=== PATIENT | female | born 1965 | race Caucasian/White ===

== ENCOUNTER 2020-04-05 08:35 | Emergency (ER) | payer SELFPAY ==
[~2020-04-05] VITALS: Ht 172.7 cm; Wt 62.2 kg
[~2020-04-05 08:35] MED LIST: ALPR2TAB2 PO; ASCO100019 PO; CARI350T14 PO; CHOL100014 PO; DIVA500T2 PO; HYDR-2155 PO; HYDR1TAB10 PO; MAG DELAY64 MG PO; OMEP20CA5 PO; OMEP40CA45 PO; ONDA2VIA3 IV; ONDA4TAB10 PO; OXCA600T9 PO; OXYC5TAB88 PO; PROM25SU32 RC; PROM25TA10 PO; SULF1TAB24 PO; TRAM50TA PO; UBID50CA PO; [UNRECOGNIZED DRUG - CODE] PO
[2020-04-05] MEDS ORDERED: ONDANSETRON ODT 4 MG TAB.RAPDIS PO ONE (09:15)
[2020-04-05] MEDS ORDERED: METOCLOPRAMIDE HCL 10 MG/2 ML VIAL. IM ONE (09:30)
[2020-04-05 09:46] LABS: CALCIUM 9.3 mg/dL (8.5-10.1); CREATININE 0.8 mg/dL (0.6-1.0); GFR 74.5; POTASSIUM 4.2 mmol/L (3.5-5.1)
[2020-04-05 09:47] LABS: BASO % 1 % (0-3); EOS # 0.1 x10^3/uL (0.0-0.7); EOS % 1 % (0-3); HEMATOCRIT 49.1 % (36.0-47.0); HEMOGLOBIN 16.5 g/dL (12.0-15.5); LYMPH # 1.8 x10^3/uL (1.0-4.8); LYMPH % 27 % (24-48); MEAN CORPUSCULAR HEMOGLOBIN 31 pg (25-35); MEAN CORPUSCULAR HGB CONC 34 g/dL (31-37); MEAN CORPUSCULAR VOLUME 93 fL (79-100); MONO # 0.4 x10^3/uL (0.0-1.1); MONO % 6 % (0-9); NEUT # 4.3 x10^3uL (1.8-7.7); NEUT % 65 % (31-73); PLATELET COUNT 332 x10^3/uL (140-400); RED BLOOD COUNT 5.31 x10^6/uL (3.50-5.40); RED CELL DISTRIBUTION WIDTH 12.9 % (11.5-14.5); WHITE BLOOD COUNT 6.6 x10^3/uL (4.0-11.0)
[2020-04-05 10:00] LABS: ALBUMIN 3.9 g/dL (3.4-5.0); TOTAL BILIRUBIN 0.4 mg/dL (0.2-1.0); TOTAL PROTEIN 7.9 g/dL (6.4-8.2)
--- NOTE | 2020-04-05 10:00 | RAD ---
EXAM: XR CHEST 1V 04/05/2020 8:53 AM CLINICAL INDICATION: Shortness of breath COMPARISON: Chest radiograph 05/27/2016 TECHNIQUE: AP upright view the chest FINDINGS: The heart and mediastinum are normal. Lungs are well-expanded. No focal opacity, pleural e ffusion, or pneumothorax. No acute osseous abnormality. IMPRESSION: No acute cardiopulmonary abnormality. Electronically signed by: Holli Duncan MD (04/05/2020 9:57 AM) [id number]
[2020-04-05 10:15] VITALS: BP 148/80
--- NOTE | 2020-04-05 10:47 | PHYS DOC ---
Past History Past Medical History: Anxiety, Bipolar, COPD, GERD, Hypertension, Other Additional Past Medical Histor: ADHD, Cyclic vomiting Past Surgical History: Tubal ligation Smoking: Cigarettes Alcohol Use: None Drug Use: None General Adult EDM: Chief Complaint: MULTIPLE COMPLAINTS HPI: HPI: 55 yo F GERD, tobacco use, COPD, bipolar disorder and cyclic vomiting presents to the ed with c/o "I think I have covid, my left long I feel a bump in it," for the past 7 days with associated nausea and nonbloody nonbilious vomiting. No relief with Zofran, Protonix and promethazine the patient took prior to arrival. Patient states her tested +2 weeks ago for Covid and she was tested on [facility] the [facility], unsure of the results. Has no PMD. Reports her heart function is 10% and was tested 2 years ago for this in [place], has no AICD and has never been admitted for fluid overload/chf. Also c/o "my heart hurts," described as bilateral upper sharp nonradiating chest pain, with left arm pain for the past 2 weeks. Initially reported she did not know her family history then later stated her father had a heart attack at 55. Denies any history of cocaine or methamphetamine abuse. No history of cardiac cath or stress test. Review of Systems: Review of Systems: Constitutional: Denies fever or chills Eyes: Denies change in visual acuity HENT: Denies nasal congestion or sore throat Respiratory: Denies cough or hemoptysis Cardiovascular: Denies syncope or edema GI: Denies abdominal pain, bloody stools or diarrhea : Denies dysuria Musculoskeletal: Denies back pain or joint pain/swelling Integument: Denies rash Neurologic: Denies headache, neck stiffness, focal weakness or sensory changes Endocrine: Denies polyuria or polydipsia Lymphatic: Denies swollen glands Psychiatric: Denies depression or anxiety, denies suicidal ideations or homicidal ideations Current Medications: Current Meds: Current Medications Medications (Trade) Dose Ordered Sig/Lucy Start Time Stop Time Status Last Admin Dose Admin Metoclopramide HCl (Reglan Vial) 10 mg 1X ONCE 04/05/20 09:30 04/05/20 09:31 DC 04/05/20 09:37 10 MG Ondansetron HCl (Zofran Odt) 8 mg 1X ONCE 04/05/20 09:15 04/05/20 09:21 DC 04/05/20 09:23 4 MG Allergies: Allergies: Allergies Coded Allergies Type Severity Reaction Last Updated Verified I S O L A T I O N *CONTACT* Allergy Unknown 09/26/14 Yes No Known Allergies Allergy Unknown 12/01/14 Yes Physical Exam: PE: Constitutional: Unkept disheveled appearance, afebrile, speaking in full sentences while ambulating to ed room, no acute distress, non-toxic appearance. HENT: Normocephalic, atraumatic, Eyes: EOMI, conjunctiva normal, no discharge. Neck: Normal range of motion, supple, Cardiovascular: S1/2 present, regular rhythm Lungs & Thorax: Speaking in full sentences, bilateral equal chest rise, no tachypnea or increased work of breathing, requires no oxygen Abdomen: soft, no tenderness, Skin: Warm, dry, no erythema, no rash. [] Back: No tenderness, no CVA tenderness. [] Extremities: No tenderness, no cyanosis, no LE edema Neurologic: Alert and oriented X 3, normal motor function, normal sensory function, no focal deficits noted. [] Psychologic: Affect normal, judgement normal, mood normal. no psychosis or pacheco, has DMC Current Patient Data: Labs: Laboratory Tests Test 04/05/20 09:00 White Blood Count 6.6 x10^3/uL (4.0-11.0) Red Blood Count 5.31 x10^6/uL (3.50-5.40) Hemoglobin 16.5 g/dL (12.0-15.5) H Hematocrit 49.1 % (36.0-47.0) H Mean Corpuscular Volume 93 fL (79-100) Mean Corpuscular Hemoglobin 31 pg (25-35) Mean Corpuscular Hemoglobin Concent 34 g/dL (31-37) Red Cell Distribution Width 12.9 % (11.5-14.5) Platelet Count 332 x10^3/uL (140-400) Neutrophils (%) (Auto) 65 % (31-73) Lymphocytes (%) (Auto) 27 % (24-48) Monocytes (%) (Auto) 6 % (0-9) Eosinophils (%) (Auto) 1 % (0-3) Basophils (%) (Auto) 1 % (0-3) Neutrophils # (Auto) 4.3 x10^3uL (1.8-7.7) Lymphocytes # (Auto) 1.8 x10^3/uL (1.0-4.8) Monocytes # (Auto) 0.4 x10^3/uL (0.0-1.1) Eosinophils # (Auto) 0.1 x10^3/uL (0.0-0.7) Basophils # (Auto) 0.0 x10^3/uL (0.0-0.2) Sodium Level 136 mmol/L (136-145) Potassium Level 4.2 mmol/L (3.5-5.1) Chloride Level 102 mmol/L (98-107) Carbon Dioxide Level 25 mmol/L (21-32) Anion Gap 9 (6-14) Blood Urea Nitrogen 14 mg/dL (7-20) Creatinine 0.8 mg/dL (0.6-1.0) Estimated GFR (Cockcroft-Gault) 74.5 BUN/Creatinine Ratio 18 (6-20) Glucose Level 92 mg/dL (70-99) Calcium Level 9.3 mg/dL (8.5-10.1) Magnesium Level 2.0 mg/dL (1.8-2.4) Total Bilirubin 0.4 mg/dL (0.2-1.0) Aspartate Amino Transferase (AST) 19 U/L (15-37) Alanine Aminotransferase (ALT) 23 U/L (14-59) Alkaline Phosphatase 68 U/L (46-116) Troponin I Quantitative < 0.017 ng/mL (0-0.055) RQ-Xtm-[id number]-Type Natriuretic Peptide 37 pg/mL (0-124) Total Protein 7.9 g/dL (6.4-8.2) Albumin 3.9 g/dL (3.4-5.0) Albumin/Globulin Ratio 1.0 (1.0-1.7) Lipase 58 U/L (73-393) L Vital Signs: Vital Signs Date Time Temp Pulse Resp B/P (MAP) Pulse Ox O2 Delivery O2 Flow Rate FiO2 04/05/20 10:15 65 16 148/80 (102) 100 Room Air 04/05/20 08:36 97.7 EKG: EKG: Sinus rhythm at 56 bpm, no axis deviation, normal intervals, new isolated T wave inversions in aVL and V2, new Q-wave in aVL, no ST elevations or ST depressions, compared to EKG 07/2014 and 09/2014 Radiology/Procedures: Radiology/Procedures: IMAGING REPORT Signed PATIENT: JULIA ESQUIVEL ACCOUNT: [id number] : 1965 LOCATION: ER AGE: 55 SEX: F EXAM STATUS: REG ER ORD. PHYSICIAN: RODOLFO FRITZ DO REASON: soa PROCEDURE: CHEST AP ONLY EXAM: XR CHEST 1V 04/05/2020 8:53 AM CLINICAL INDICATION: Shortness of breath COMPARISON: Chest radiograph 05/27/2016 TECHNIQUE: AP upright view the chest FINDINGS: The heart and mediastinum are normal. Lungs are well-expanded. No focal opacity, pleural effusion, or pneumothorax. No acute osseous abnormality. IMPRESSION: No acute cardiopulmonary abnormality. Electronically signed by: Holli Duncan MD (04/05/2020 9:57 AM) DESKTOP- [id number] DICTATED AND SIGNED BY: HOLLI DUNCAN MD DATE: 04/05/20 0956 CC: PCP,NO; RODOLFO FRITZ DO ~MTH0 0 Impressions: 0 points Low risk group for DVT. Unlikely according to [facility] DVT studies. Heart Score: HEART Score for Chest Pain: HEART Score for Chest Pain Response (Comments) Value History Slighlty/Non-Suspicious 0 ECG Nonspecific Repolarizatio 1 Age >45 - < 65 1 Risk Factors 1 or 2 Risk Factors 1 Troponin < Normal Limit 0 Total 3 Risk Factors: Risk Factors: DM, Current or recent (<one month) smoker, HTN, HLP, family history of CAD, obesity. Risk Scores: Score 0 - 3: 2.5% MACE over next 6 weeks - Discharge Home Score 4 - 6: 20.3% MACE over next 6 weeks - Admit for Clinical Observation Score 7 - 10: 72.7% MACE over next 6 weeks - Early Invasive Strategies Course & Med Decision Making: Course & Med Decision Making Pertinent Labs and Imaging studies reviewed. (See chart for details) Initial complaints in the ED were for Covid exposure with nausea and vomiting. Patient also mentioned chest pain and left arm pain x 2 weeks, troponin negative, no DERICK on ekg. blood pressure has significantly improved with no evidence of endorgan damage. Plan was to reevaluate patient and perform a repeat EKG. RN is very familiar with patient due to frequent ED visits for similar complaints. pt refused to provide urine. Pt with multiple complaints in ed. Has a h/o bipolar disorder but has no active pacheco, psychosis, significant anxiety depression/ or the inability to provide care for herself. Patient is very malingering with full DMC. Patient is refusing to comply with [facility] Covid policy - she will not stay in her isolation room or keep her mask fully over her nose/mouth. Has paced multiple times in the hallway against verbal redirection and code hodge was activated when pt became aggressive and walked towards myself screaming "You aren't doing anything for me." Code randall was activated. I was able to speak with pt in her room and explained her ED work-up. Was going to repeat an EKG and if unremarkable, would prescribe her with antiemetics and outpatient follow-up with primary care and cardiology. Given CP has been present for 2 weeks and that pt is a PUI, d-dimer not ordered (d-dimer can be elevated with covid and ADD-RS + d-dimer is not an externally validated study), dissection very unlikely. [facility] DVT score was 0. Pt refused to comply with my recommendations and she not medically cleared for discharge. RN familiar with pt and she left ama on prior ed visit. The patient has decided to leave our facility against medical advice. I have assessed patient's ability to make informed decision and feel the patient has the capacity to comprehend information regarding the current medical condition and appreciates the impact of the disease or condition and the consequences of various options for treatment, including foregoing treatment. The patient possesses the ability to evaluate all treatment options, comparing the risks and benefits of each option, communicate his or her choice in a consistent manner over time, and is able to make rational choices. I explained to the patient further testing, treatment, and evaluation I would like to perform in the emergency department visit as well as any possible alternatives that can be accomplished in a timely manner. I have outlined the possible risks of foreg oing any or all of these interventions and the patient understands and acknowledges that the decision to leave may result in undesirable consequences such as , permanent disability, and/or loss of current lifestyle. Even though leaving AMA is not ideal, I have instructed the patient to follow any discharge instructions given, take any medications prescribed, and resume care a s soon as possible with another provider. This conversation was witnessed by another member of the emergency department staff and we clearly communicated the patient is welcome to return anytime to continue care at our facility. Dragon Disclaimer: Dragon Disclaimer: This electronic medical record was generated, in whole or in part, using a voice recognition dictation system. Departure Departure: Impression: Primary Impression: Chest pain Additional Impression: Nausea and vomiting Disposition: 07 AMA/ELOPED/LWBS Referrals: PCP,SUZY (PCP) RODOLFO FRITZ DO Apr 05, 2020 10:47
--- NOTE | 2020-04-05 16:01 | EKG ---
[facility] ED [address] [place] [id number] Test Date: 2020-04-05 Test Time: 08:51:16 Pat Name: JULIA ESQUIVEL Department: Room: Gender: F [employer] Panel Installer: : 1965 Requested By: RODOLFO FRITZ Order Number: [id number] Reading MD: Measurements Intervals Rumsey Rate: 56 P: [place]: QRS: 76 QRSD: 68 T: 79 QT: 418 QTc: 406 Interpretive Statements IRREGULAR RHYTHM, NO P-WAVE FOUND NO SPECIFIC ECG ABNORMALITIES RI6.02 No previous ECG available for comparison
== END 2020-04-05 10:46 | disposition left against medical advice (07) ==
LOC: ER 08:35
DX: R11.2 Nausea with vomiting, unspecified (principal); R07.89 Other chest pain; M79.602 Pain in left arm; J44.9 Chronic obstructive pulmonary disease, unspecified; K21.9 Gastro-esophageal reflux disease without esophagitis; I10 Essential (primary) hypertension; F41.9 Anxiety disorder, unspecified; F31.9 Bipolar disorder, unspecified; F17.210 Nicotine dependence, cigarettes, uncomplicated; Z98.51 Tubal ligation status; Z88.8 Allergy status to other drugs, medicaments and biological substances
CPT/HCPCS: 36415; 71045; 80053; 83690; 83735; 83880; 84484; 85025; 93005; 96372; 99285; J2765; Q0162